=== PATIENT | female | born 1995 | race American Indian/Alaskan Native ===

== ENCOUNTER 2018-03-28 20:05 | Inpatient (IN) | payer OTHER ==
[2018-03-28 21:19] LABS: Basophils % (Auto) 0.3 % (0.0-1.8); Eosinophils # (Auto) 0.2 K/mm3 (0.0-0.4); Hematocrit 31.5 % (30.3-42.9); Lymphocytes # (Auto) 1.6 K/mm3 (1.2-5.4); Lymphocytes % (Auto) 17.5 % (13.4-35.0); Mean Corpuscular HGB Conc 35 % (30-34); Mean Corpuscular Hemoglobin 29 pg (28-32); Mean Corpuscular Volume 83 fl (79-97); Monocytes # (Auto) 0.7 K/mm3 (0.0-0.8); Monocytes % (Auto) 7.4 % (0.0-7.3); Platelet Count 254 K/mm3 (140-440); Red Cell Distribution Width 15.3 % (13.2-15.2)
[2018-03-28 22:23] LABS: Bilirubin,Urine NEG (Negative); Blood,Urine LG (Negative); Color,Urine Red (Yellow); Mucus,Urine FEW /HPF; Urobilinogen,Urine < 2.0 mg/dL (<2.0)
[2018-03-28 22:25] LABS: RBC,Urine > 182.0 /HPF (0.0-6.0)
[2018-03-28] MEDS ORDERED: TYLENOL PO ONE (23:12)
--- NOTE | 2018-03-28 23:17 | Emergency Department Report ---
HPI - General Chief Complaint: Vaginal Bleeding Time Seen by Provider: 03/28/18 23:04 - HPI HPI: 23-year-old female presents to the emergency department with a complaint of some lower abdominal and pelvic cramping and some mild vaginal bleeding that started just prior to presentation. The bleeding has slowed up and the discomfort is intermittent. Patient is at about 19 weeks and is . She is on vitamins but does not have any [employer]. She denies any other past medical history. She did not take anything for her symptoms prior to presentation. ED Past Medical Hx - Past Medical History Previous Medical History?: No - Surgical History Past Surgical History?: No - Social History Smoking Status: Never Smoker - Medications Home Medications: Home Medications Medication Instructions Recorded Confirmed Last Taken Type Acetaminophen [Tylenol] 325 mg PO PRN 03/29/18 03/29/18 03/27/18 History ED Review of Systems ROS: Stated complaint: VAGINAL BLEEDING Other details as noted in HPI Comment: All other systems reviewed and negative Constitutional: denies: chills, fever Eyes: denies: eye pain, eye discharge, vision change ENT: denies: ear pain, throat pain Respiratory: denies: cough, shortness of breath, wheezing Cardiovascular: denies: chest pain, palpitations Gastrointestinal: abdominal pain. denies: vomiting Genitourinary: other (vaginal bleeding). denies: urgency, dysuria, discharge Musculoskeletal: denies: back pain, joint swelling, arthralgia Skin: denies: rash, lesions Neurological: denies: headache, weakness, paresthesias Physical Exam - Physical Exam Vital Signs: Vital Signs 03/28/18 20:38 Temperature 99.2 F Pulse Rate 97 H Respiratory 16 Rate Blood Pressure 108/65 O2 Sat by Pulse 100 Oximetry Physical Exam: GENERAL: The patient is well-developed well-nourished. HENT: Normocephalic. Atraumatic. Patient has moist mucous membranes. EYES: Extraocular motions are intact. NECK: Supple. Trachea is midline. CHEST/LUNGS: Clear to auscultation. There is no respiratory distress noted. HEART/CARDIOVASCULAR: Regular. There is no tachycardia. There is no murmur. ABDOMEN: Abdomen is soft. Currently there is no reproducible abdominal tenderness to palpation. No guarding. Patient has normal bowel sounds. There is no abdominal distention. SKIN: Skin is warm and dry. NEURO: The patient is awake, alert, and oriented. The patient is cooperative. The patient has no focal neurologic deficits. The patient has normal speech. MUSCULOSKELETAL: There is no tenderness or deformity. There is no limitation range of motion. There is no evidence of acute injury. ED Course Vital Signs 03/28/18 20:38 Temperature 99.2 F Pulse Rate 97 H Respiratory 16 Rate Blood Pressure 108/65 O2 Sat by Pulse 100 Oximetry ED Medical Decision Making - Lab Data Result diagrams: 03/28/18 21:04 - Radiology Data Radiology results: report reviewed PROCEDURE: Limited obstetrical ultrasound. TECHNIQUE: Real-time limited sonographic examination was performed for evaluation of size, position, heartbeat, fluid volume for each fetus with image documentation (1 or more fetuses). CPT 56160 HISTORY: , vaginal bleeding. COMPARISON: No prior studies are available for comparison. FINDINGS: There is a single viable fetus in breech presentation. Cardiac activity is documented at 153 beats per minute. There are no definite congenital anomalies. There may be small bilateral choroid plexus cysts. A detailed anatomic survey was not performed.. The cervix appears to be wide open. There is amniotic fluid protruding into the vagina which is distended. An impending spontaneous is likely. The amniotic fluid volume appears normal. The placenta is posterior in location. The measured parameters are as follows: Biparietal diameter 4.4 centimeters, head circumference 16.9 centimeters, abdominal circumference 14.6 centimeters, femur length 3.2 centimeters. The calculated menstrual age is 19 weeks 5 days. The estimated date of confinement is 08/17/2018. The estimated weight is 320 grams. IMPRESSION: Probable impending spontaneous in breech presentation. Currently viable fetus with heart rate of 153 beats per minute. Transcribed By: [facility] Dictated By: CHANELLE MORRISON MD Electronically Authenticated By: CHANELLE MORRISON MD Signed Date/Time: 03/28/18 5693 - Medical Decision Making This patient came to the emergency department with a complaint of some abdominal and pelvic cramping and some vaginal bleeding that started prior to arrival. She went to have an up to check ultrasound came back showing a wide open cervix and the amniotic sac protruding into the vagina with concern for impending miscarriage/. I spoke with the [employer] on-call, Dr. oJn Desir , who accepted the patient as a transfer/admission over to labor and delivery. Critical Care Time: No Critical care attestation.: If time is entered above; I have spent that time in minutes in the direct care of this critically ill patient, excluding procedure time. ED Disposition Clinical Impression: Threatened Qualifiers: Weeks of gestation: 19 weeks Qualified Code(s): Z3A.19 - 19 weeks gestation of Disposition: OP ADMIT IP TO THIS HOSP Is pt being admited?: Yes Condition: Fair Time of Disposition: 23:17
[2018-03-28] MEDS ORDERED: AMBIEN PO PRN (23:45)
[2018-03-28] MEDS ORDERED: LACTATED RINGERS 1,000 ML IV SCH (23:45)
--- NOTE | 2018-03-28 23:56 | Ultrasound Report ---
FINAL REPORT PROCEDURE: Limited obstetrical ultrasound. TECHNIQUE: Real-time limited sonographic examination was performed for evaluation of size, position, heartbeat, fluid volume for each fetus with image documentation (1 or more fetuses). CPT 87873 HISTORY: , vaginal bleeding. COMPARISON: No prior studies are available for comparison. FINDINGS: There is a single viable fetus in breech presentation. Cardiac activity is documented at 153 beats per minute. There are no definite congenital anomalies. There may be small bilateral choroid plexus cysts. A detailed anatomic survey was not performed.. The cervix appears to be wide open. There is amniotic fluid protruding into the vagina which is distended. An impending spontaneous is likely. The amniotic fluid volume appears normal. The placenta is posterior in location. The measured parameters are as follows: Biparietal diameter 4.4 centimeters, head circumference 16.9 centimeters, abdominal circumference 14.6 centimeters, femur length 3.2 centimeters. The calculated menstrual age is 19 weeks 5 days. The estimated date of confinement is 08/17/2018. The estimated weight is 320 grams. IMPRESSION: Probable impending spontaneous in breech presentation. Currently viable fetus with heart rate of 153 beats per minute.
[2018-03-29] MEDS: STADOL IV PRN ×2 (00:36→03:08)
[2018-03-29] MEDS ORDERED: MAGNESIUM SULFATE 4GM/100ML 4 GM/100 ML BAG IV ONE (01:34)
[2018-03-29] MEDS ORDERED: MAGNESIUM SULFATE 40GM/1000ML 40 GM/1,000 ML BAG IV SCH (02:00)
--- NOTE | 2018-03-29 03:53 | History and Physical Report ---
History of Present Illness Date of examination: 03/29/18 Date of admission: 03/28/18 23:47 Chief complaint: Labor History of present illness: Pt is a 23yo BF EGA 19 5/7 weeks presents to L&D from [facility] ER with BBOW @ vaginal introitus. Pt did not receive care with this . Ob u/s showed IUP @ 19 5/7 weeks, breech presentation. Past History Past Medical History: no pertinent history Past Surgical History: no surgical history Family/Genetic History: none Social history: no significant social history, single - Obstetrical History : 1 Medications and Allergies Allergies Allergy/AdvReac Type Severity Reaction Status Date / Time No Known Allergies Allergy Verified 03/28/18 23:51 Home Medications Medication Instructions Recorded Confirmed Last Taken Type Acetaminophen [Tylenol] 325 mg PO PRN 03/29/18 03/29/18 03/27/18 History Ferrous Sulfate [Feosol 325 MG tab] 325 mg PO BID #60 tablet 03/30/18 Unknown Rx Ibuprofen [Motrin 600 MG tab] 600 mg PO Q6HR #30 tablet 03/30/18 Unknown Rx Vit-Fe Fumar-FA [ 1 each PO QDAY #30 tablet 03/30/18 Unknown Rx Vitamin] Active Meds: Active Medications Butorphanol Tartrate (Stadol) 2 mg IV Q2H PRN PRN Reason: Labor Pain Last Admin: 03/29/18 03:08 Dose: 2 mg Lactated Ringer's (Lactated Ringers) 1,000 mls @ 125 mls/hr IV DIRECT KOFI Last Admin: 03/29/18 00:10 Dose: 125 mls/hr Magnesium Sulfate (Magnesium Sulfate 40gm/1000ml) 40 gm in 1,000 mls @ 50 mls/ hr IV DIRECT KOFI Last Admin: 03/29/18 02:06 Dose: 2 gm/hr, 50 mls/hr Zolpidem Tartrate (Ambien) 10 mg PO QHS PRN PRN Reason: Insomnia Last Admin: 03/29/18 01:12 Dose: 10 mg Review of Systems All systems: negative - Vital Signs Vital signs: Vital Signs Temp Pulse Resp BP Pulse Ox 99.2 F 97 H 16 108/65 100 03/28/18 20:38 03/28/18 20:38 03/28/18 20:38 03/28/18 20:38 03/28/18 20:38 Temp Pulse Resp BP Pulse Ox 98.1 F 91 H 18 107/55 100 03/29/18 00:08 03/29/18 03:08 03/29/18 03:38 03/29/18 03:07 03/29/18 03:08 - Physical Exam Breasts: Positive: deferred Cardiovascular: Regular rate Lungs: Positive: Clear to auscultation Abdomen: Positive: normal appearance Genitourinary (Female): Positive: normal external genitalia Vagina: Positive: discharge Uterus: Positive: enlarged Extremities: Positive: normal - Obstetrical Cervical Dilatation: 10 Cervical Effacement Percentage: 100 station: +2 Uterine Contraction Pattern: Regular Uterine Tone Measurement Phase: Contraction Results Result Diagrams: 03/29/18 16:42 Abnormal lab results 03/28/18 03/28/18 03/28/18 Range/Units 21:04 21:04 21:46 MCHC 35 H (30-34) % RDW 15.3 H (13.2-15.2) % [place] % (Auto) 7.4 H (0.0-7.3) % Seg Neutrophils % 72.8 H (40.0-70.0) % HCG, Quant 9287 H (0-4) mIU/mL Urine WBC (Auto) 54.0 H (0.0-6.0) /HPF All other labs normal. Ultrasound: report reviewed Assessment and Plan - Patient Problems (1) 19 weeks gestation of Onset Date: 03/29/18 Current Visit: Yes Status: Resolved Plan to address problem: A: IUP @ 19 5/7 weeks in labor Suspect cervical incompetence Threatened No care P: Admit to L&D for expectant vaginal delivery (2) Threatened Onset Date: 03/29/18 Current Visit: Yes Status: Resolved
[2018-03-29] MEDS ORDERED: MINERAL OIL PO PRN (03:54)
[2018-03-29] MEDS ORDERED: BRETHINE IVP PRN (03:54)
[2018-03-29] MEDS ORDERED: POLYCILLIN/NS 2 GM/100 ML 2 GM/100 ML BAG IV ONE (03:54)
[2018-03-29] MEDS ORDERED: BRETHINE SUB-Q PRN (03:54)
[2018-03-29] MEDS ORDERED: XYLOCAINE 2% INFILTRATI ONE (03:54)
[2018-03-29] MEDS ORDERED: LACTATED RINGERS 1,000 ML IV SCH (04:00)
[2018-03-29] MEDS ORDERED: PITOCin/NS 20 UNIT/1000ML DRIP 20 UNITS/1,000 ML BAG IV SCH ×2 (04:00→05:00)
[2018-03-29] MEDS ORDERED: PITOCin/NS 30 UNIT/500ML 30 UNITS/500 ML BAG IV SCH (04:00)
--- NOTE | 2018-03-29 04:40 | Procedure Note ---
OB Delivery Note - Delivery Date of Delivery: 03/29/18 Surgeon: ZAINAB BRUNO Estimated blood loss: other (150cc) - Vaginal Delivery presentation: breech Intrapartum events: no care, labor-<37 weeks Delivery induction: none Delivery augmentation: rupture of membranes Delivery monitor: external uterine Route of delivery: Delivery placenta: spontaneous Delivery cord: 3 umbilical vessels Episiotomy: none Delivery laceration: none Anesthesia: intravenous - A at 1 minute: 0 at 5 minutes: 0 Gender: Male (259gms)
[2018-03-29] MEDS ORDERED: PHENERGAN PR PRN (04:41)
[2018-03-29] MEDS ORDERED: PHENERGAN PO PRN (04:41)
[2018-03-29] MEDS ORDERED: BENADRYL PO PRN (04:41)
[2018-03-29] MEDS ORDERED: DULCOLAX PR PRN (04:41)
[2018-03-29] MEDS ORDERED: TUCKS PAD TP PRN (04:41)
[2018-03-29] MEDS ORDERED: TYLENOL PO PRN (04:41)
[2018-03-29] MEDS ORDERED: ZOFRAN IV PRN (04:41)
[2018-03-29] MEDS ORDERED: LANSINOH TP PRN (04:41)
[2018-03-29] MEDS ORDERED: NORCO 5/325 PO PRN (04:41)
[2018-03-29] MEDS ORDERED: MILK OF MAGNESIA PO PRN (04:41)
[2018-03-29] MEDS ORDERED: SODIUM CHLORIDE FLUSH SYRINGE 10 ML IV PRN (05:00)
[2018-03-29] MEDS ORDERED: AMPICILLIN/NS 1 GM/50 ML 1 GM/50 ML BAG IV SCH (08:00)
[2018-03-29] MEDS: FEOSOL PO SCH ×2 (10:50→23:23)
[2018-03-29] MEDS: PRENATAL VITAMIN PO SCH (10:50)
[2018-03-29] MEDS: MOTRIN PO SCH (12:32)
[2018-03-29 16:58] LABS: Hematocrit 27.2 % (30.3-42.9); Hemoglobin 9.1 gm/dl (10.1-14.3)
[2018-03-30] MEDS: MOTRIN PO SCH ×2 (00:05→06:05)
[2018-03-30] MEDS ORDERED: M-M-R II VACCINE SUB-Q ONE (04:41)
[2018-03-30] MEDS ORDERED: BOOSTRIX IM ONE (06:00)
--- NOTE | 2018-03-30 08:02 | Progress Note ---
Assessment and Plan - Patient Problems (1) 19 weeks gestation of Onset Date: 03/29/18 Current Visit: Yes Status: Resolved (2) Threatened Onset Date: 03/29/18 Current Visit: Yes Status: Resolved (3) Complete Onset Date: 03/30/18 Current Visit: Yes Status: Resolved Plan to address problem: A: S/P Complete miscarriage - stable P: May go home today. Subjective - Subjective Date of service: 03/30/18 Principal diagnosis: s/p SAB - PPD #1 Interval history: Pt is feeling well without complaints. Bleeding improved. Patient reports: appetite normal, voiding normally, pain well controlled, flatus , ambulating normally, no dizzy ambulation, no nauseated : Objective - Vital Signs Latest vital signs: Vital Signs Temp Pulse Resp BP Pulse Ox 03/30/18 04:10 98.7 F 61 18 101/72 03/30/18 00:00 98.4 F 71 18 101/64 03/29/18 19:30 98.6 F 74 16 111/57 03/29/18 16:49 98.7 F 80 16 104/57 100 03/29/18 12:00 98.6 F 73 16 97/54 99 03/29/18 08:50 98.4 F 94 H 16 112/54 100 Intake and Output 03/29/18 03/30/18 03/30/18 22:59 06:59 14:59 Intake Total 420 300 Output Total 400 Balance 20 300 Intake: Intake, Free Water 420 300 Output: Urine 400 Void 400 Other: Total, Output Amount 400 - Exam Breasts: Present: deferred Cardiovascular: Present: Regular rate Lungs: Present: Clear to auscultation Abdomen: Present: normal appearance Uterus: Present: normal, firm, fundal height below umbilicus Extremities: Present: normal - Labs Labs: Abnormal lab results 03/29/18 Range/Units 16:42 Hgb 9.1 L (10.1-14.3) gm/dl Hct 27.2 L (30.3-42.9) % Laboratory Tests 03/28/18 03/28/18 03/28/18 21:04 21:04 21:04 WBC 9.4 RBC 3.80 Hgb 11.0 Hct 31.5 MCV 83 MCH 29 MCHC 35 H RDW 15.3 H Plt Count 254 Lymph % (Auto) 17.5 Rich % (Auto) 7.4 H Eos % (Auto) 2.0 Baso % (Auto) 0.3 Lymph # 1.6 Rich # 0.7 Eos # 0.2 Baso # 0.0 Seg Neutrophils % 72.8 H Seg Neutrophils # 6.8 HCG, Quant 9287 H Urine Color Urine Turbidity Urine pH Ur Specific [place] Urine Protein Urine Glucose (UA) Urine Ketones Urine Blood Urine Nitrite Urine Bilirubin Urine Urobilinogen Ur Leukocyte Esterase Urine WBC (Auto) Urine RBC (Auto) U Epithel Cells (Auto) Urine Mucus RPR Blood Type O POSITIVE Antibody Screen Negative 03/28/18 03/29/18 03/29/18 21:46 04:41 16:42 WBC RBC Hgb 9.1 L Hct 27.2 L MCV MCH MCHC RDW Plt Count Lymph % (Auto) Rich % (Auto) Eos % (Auto) Baso % (Auto) Lymph # Rich # Eos # Baso # Seg Neutrophils % Seg Neutrophils # HCG, Quant Urine Color Red Urine Turbidity Cloudy Urine pH 6.0 Ur Specific [place] 1.014 Urine Protein 100 mg/dl Urine Glucose (UA) 50 Urine Ketones Neg Urine Blood Lg Urine Nitrite Neg Urine Bilirubin Neg Urine Urobilinogen < 2.0 Ur Leukocyte Esterase Sm Urine WBC (Auto) 54.0 H Urine RBC (Auto) > 182.0 U Epithel Cells (Auto) 2.0 Urine Mucus Few RPR Nonreactive Blood Type Antibody Screen
[2018-03-30 08:49] VITALS: BP 101/67
--- NOTE | 2018-03-30 08:55 | Discharge Summary ---
Providers - Providers Date of Admission: 03/28/18 23:47 Date of discharge: 03/30/18 Attending physician: ZAINAB BRUNO Primary care physician: PAULA DOC Hospitalization Reason for admission: active labor, labor Delivery: Episiotomy: none Laceration: none Other procedures: none complications: none Discharge diagnosis: intrapartum demise [place] baby: male Hospital course: Unremarkable. Condition at discharge: Good Disposition: [id number] TO HOME OR SELFCARE - Discharge Diagnoses (1) 19 weeks gestation of Status: Resolved (2) Threatened Status: Resolved (3) Complete Status: Resolved Plan - Discharge Medications Prescriptions: Ferrous Sulfate [Feosol 325 MG tab] 325 mg PO BID #60 tablet Ibuprofen [Motrin 600 MG tab] 600 mg PO Q6HR #30 tablet Vit-Fe Fumar-FA [ Vitamin] 1 each PO QDAY #30 tablet - Provider Discharge Summary Activity: routine, no sex for 6 weeks, no heavy lifting 4 weeks, no strenuous exercise Diet: routine Instructions: routine Additional instructions: [] Smoking cessation referral if applicable(refer to patient education folder for contact #) [] Refer to [facility]'s [facility] Booklet Call your doctor immediately for: * Fever > 100.5 * Heavy vaginal bleeding ( >1 pad per hour) * Severe persistent headache * Shortness of breath * Reddened, hot, painful area to leg or breast * Drainage or odor from incision. * Keep incision clean and dry at all times and follow doctor's instructions regarding bathing/showering - Follow up plan Follow up: PAULA CELESTIN MD [Primary Care Provider] - 3-5 Days ZAINAB BRUNO MD [Staff Physician] - 6 Weeks
[2018-03-30] MEDS: FEOSOL PO SCH (09:39)
[2018-03-30] MEDS: PRENATAL VITAMIN PO SCH (09:40)
== END 2018-03-30 10:56 | disposition home or self-care (01) | DRG 779 ==
LOC: ED 20:05 → TRG 20:05 → EDSTATUS 23:43 → LD 23:47 → OB 03-29 08:07
PROVIDERS: ADMIT Obstetrics & Gynecology; ATTEND Obstetrics & Gynecology
PROC: 10E0XZZ Delivery of Products of Conception, External Approach (ICD-10-PCS; principal; 2018-03-29)
DX: O02.1 Missed abortion (principal)
CPT/HCPCS: 36415; 76805; 81001; 84702; 85014; 85018; 85025; 86592; 86850; 86900; 86901; 88305; 90707; J0595; J2590; J3475; J7120